=== PATIENT | male | born 1990 | race African-American/Black ===

== ENCOUNTER 2020-08-05 13:40 | Emergency (ER) | payer SELFPAY ==
--- NOTE | ~2020-08-05 | XR_ITS ---
EXAMINATION: XR KNEE, RIGHT CLINICAL INFORMATION: Pain COMPARISON: None TECHNIQUE: Four views of the right knee. FINDINGS: Bone alignment is normal. No fracture or dislocation is seen. The joint spaces are normal. There is a large joint effusion. XR/XR knee RT 4V IMPRESSION: Large joint effusion.
[2020-08-05 13:42] VITALS: BP 145/73; PULSE 50; RESP 16; TEMP 36.7; O2SAT 98; BMI 32.1
--- NOTE | 2020-08-05 16:49 | ED.EXTPRO ---
HPI - Extremity Problem General Chief complaint: Extremity Problem Stated complaint: knee pain Time Seen by Provider: 08/05/20 15:23 History of Present Illness HPI Narrative: Patient complains of pain and swelling to the right knee for several days, denies any injury, patient has had prior surgery to the knee Related Data Previous Rx's Medication Instructions Recorded ibuprofen 600 mg PO Q6H PRN #20 tab 08/05/20 Allergies Allergy/AdvReac Type Severity Reaction Status Date / Time No Known Allergies Allergy Verified 08/05/20 14:58 Review of Systems Review of Systems: Positive for right knee pain and swelling Negatives are no fever no chills no dizziness no weakness no fainting no chest pain no shortness of breath no neck pain no back pain no rash no numbness or weakness PMFSH Past Medical History Source: nursing notes reviewed Medical History (Updated 08/06/20 @ 00:01 by Pavan Herrera) Right knee meniscal tear Social History Social History Smoked in Last 30 Days: No Use of substances other than those prescribed or required for medical reasons: No Advance Directives: Yes Advance Directives Information Provided: No Advance Directives on File: No Physical Exam Vital Signs: Vital Signs: Last Vital Signs Temp 98.0 F 08/05/20 13:42 Pulse 50 08/05/20 13:42 Resp 16 08/05/20 13:42 BP 145/73 H 08/05/20 13:42 Pulse Ox 98 08/05/20 13:42 Body Mass Index 32.1 General appearance is no acute distress relax and cooperative The head is normocephalic atraumatic Neck is supple Respiratory no acute distress Extremities is the right knee has swelling and tenderness, there is no redness or warmth, it extends to 180, patient can do a straight leg raise, it flexes to around 90, neurovascular intact distal, patient is walking with a limping gait Other extremities normal Skin no rashes Neuro no focal deficits Course Course Course Narrative: X-ray showed an effusion in the knee, no other acute findings, patient is discharged to follow with Orthopedics Discharge Plan Discharge Clinical Impression: Effusion of knee joint right Patient Disposition: Home, Self-Care Additional Instructions: Follow with orthopedist for pain and swelling in the right knee X-ray showed some fluid on the knee This can sometimes happen after surgery on the right knee Prescriptions: New ibuprofen 600 mg tablet 600 mg PO Q6H PRN (Reason: pain) Qty: 20 RF: 0 Referrals: Shirley Dukes MD [Physician] - 2 days (Right knee effusion for possible drainage and steroid shot) Stand Alone Forms: Work/School Release Interventions: ED Discharge Assessment Last Done: 08/05/20 17:09 Discharge Date/Time: 08/05/20 17:11
== END 2020-08-05 17:11 | disposition home or self-care (01) ==
PROVIDERS: Emergency Provider Emergency Medicine Emergency Medical Services
DX: M25.461 Effusion, right knee (principal); M25.561 Pain in right knee
CPT/HCPCS: 73564; 99283

== ENCOUNTER 2020-08-07 23:01 | Emergency (ER) | payer SELFPAY ==
--- NOTE | 2020-08-07 23:33 | ED_ITS ---
HPI - Extremity Injury (Lower) General Chief Complaint: Extremity Injury, Lower Stated Complaint: KNEE PAIN Time Seen by Provider: 08/07/20 23:29 Source: patient Mode of arrival: ambulatory Limitations: no limitations History of Present Illness HPI Narrative: Patient was working 2 days ago next day woke up notice si gnificant right knee pain with slight swelling. Patient had meniscal tear about 4 years ago and had arthroscopic surgery and was painless since then. No other injuries MD complaint: knee injury Related Data Previous Rx's Medication Instructions Recorded ibuprofen 600 mg PO Q6H PRN #20 tab 08/05/20 tramadol 50 mg PO Q6H PRN #20 tab 08/07/20 Allergies Allergy/AdvReac Type Severity Reaction Status Date / Time No Known Allergies Allergy Verified 08/07/20 23:40 Review of Systems Review of Systems: Yes all other systems are reviewed and are negative [facility] Past Medical History Medical History Right knee meniscal tear Social History Social History Smoking Status: Never smoker Use of substances other than those prescribed or required for medical reasons: No Advance Directives: No Physical Exam Vital Signs: Vital Signs: Last Vital Signs Temp 98.7 F 08/07/20 23:40 Pulse 76 08/07/20 23:40 Resp 16 08/07/20 23:40 BP 132/65 08/07/20 23:40 Pulse Ox 99 08/07/20 23:40 Body Mass Index 23.7 Const: General: no acute distress and well developed HENMT: Head: Yes normocephalic and Yes atraumatic Resp: Effort & Inspection: normal respiratory effort Extrem: Knee images: 1. Diffuse tenderness right knee without any in knee effusion no medial or lateral joint line tenderness jailyn's sign negative anterior drawer sign is negative good range of movement , no deformity MDM - Extremity Injury (Lower) MDM Narrative Medical decision making narrative: Patient likely with ligament strain no signs of significant meniscal injury. Patient advised to use Ephraim wrap and continue to take pain medication and follow with Orthopedics if not better in 2 weeks patient ambulatory in the ER Discharge Plan Discharge Clinical Impression: Acute internal derangement of knee Qualifiers: Laterality: right Qualified Code(s): M23.91 - Unspecified internal derangement of right knee Patient Disposition: Home, Self-Care Instructions: Knee Pain (ED) Additional Instructions: you Likely have ligament strain of your right knee. Use Ephraim wrap as advised. Pain medication as advised. Avoid going upstairs or downstairs. Follow with Orthopedic if not better in 2 weeks Prescriptions: New tramadol 50 mg tablet 50 mg PO Q6H PRN (Reason: pain) Qty: 20 RF: 0 No Action ibuprofen 600 mg tablet 600 mg PO Q6H PRN (Reason: pain) Qty: 20 RF: 0 Stand Alone Forms: Work/School Release
[2020-08-07 23:40] VITALS: BP 132/65; PULSE 76; RESP 16; TEMP 37.1; O2SAT 99; BMI 23.7
[2020-08-08] MEDS: traMADoL HCL 50 MG TABLET 100 MG PO (00:01)
== END 2020-08-08 00:20 | disposition home or self-care (01) ==
PROVIDERS: Emergency Provider Internal Medicine
DX: M23.91 Unspecified internal derangement of right knee (principal); M25.561 Pain in right knee
CPT/HCPCS: 99283

== ENCOUNTER 2020-09-13 08:26 | Outpatient (REF) | payer SELFPAY ==
--- NOTE | ~2020-09-13 | XR_ITS ---
EXAMINATION: XR KNEE, RIGHT CLINICAL INFORMATION: Pain COMPARISON: Previous x-ray July 2020 TECHNIQUE: [place] view of the right knee. FINDINGS: Patellofemoral alignment appears normal. No fracture or dislocation or bone lesion is seen. Soft tissues are unremarkable. XR/XR knee RT 2V IMPRESSION: Normal sunrise view of the right knee.
== END 2020-09-13 08:27 | disposition home or self-care (01) ==
LOC: HO.HOSX 08:26
PROVIDERS: Visit Provider Physician Assistant
DX: M25.561 Pain in right knee (principal); M23.91 Unspecified internal derangement of right knee
CPT/HCPCS: 20610; 73560; J1040

== ENCOUNTER 2020-09-18 07:28 | Emergency (ER) | payer BC, SELFPAY ==
--- NOTE | ~2020-09-18 | US_ITS ---
EXAMINATION: US VENOUS ULTRASOUND WITH DOPPLER LOWER EXTREMITY, LEFT CLINICAL INFORMATION: Pain COMPARISON: None TECHNIQUE: Ultrasound of the deep veins is performed from the hip to the calf with compression sonography and color and pulse Doppler assessment. Spectral analysis with color-flow imaging is performed. FINDINGS: There is normal venous compression and respiratory variation and augmented flow. The visualized common femoral vein, superficial femoral vein, profunda femoral vein, popliteal vein, and the trifurcation region shows no evidence of deep venous thrombosis. There is no significant popliteal fossa cyst. If the patient's symptoms persist, followup ultrasound in 5 days 7 days might be of value to exclude proximal propagation from a non-visualized calf vein. US/US venous duplex LE LT IMPRESSION: No DVT demonstrated in the left lower extremity. No abnormalities present along the left posterior thigh where the patient is experiencing pain.
[2020-09-18 07:33] VITALS: BP 147/76; PULSE 65; RESP 16; TEMP 36.9; O2SAT 98; BMI 22.3
--- NOTE | 2020-09-18 08:19 | ED.EXTPRO ---
HPI - Extremity Problem General Chief complaint: Extremity Problem Stated complaint: pulled hamstring Time Seen by Provider: 09/18/20 08:18 Source: patient Mode of arrival: ambulatory Limitations: no limitations History of Present Illness HPI Narrative: Came in for evaluation of left thigh hamstring pain. 30-year-old otherwise healthy male came in for evaluation of left hamstring muscle pain started 2 days ago, pain is localized to the back of the left thigh, describes the pain as dull ache with cramps, no radiation of the pain, pain is intermittent if it is there it is 8/10, walking or movement makes the pain worse, rest makes the pain better, no other associated symptoms. Patient declined any recent history of travel of prolonged immobilization or history of DVT. Patient also declined any history of trauma. No history of strenuous exercising. Related Data Previous Rx's Medication Instructions Recorded ibuprofen 600 mg PO Q6H PRN #20 tab 08/05/20 tramadol 50 mg PO Q6H PRN #20 tab 08/07/20 meloxicam 7.5 mg tablet 7.5 mg PO DAILY 30 Days #30 tab 09/13/20 cyclobenzaprine 10 mg PO TID #10 tab 09/18/20 ibuprofen 800 mg PO Q8H PRN #14 tab 09/18/20 Allergies Allergy/AdvReac Type Severity Reaction Status Date / Time No Known Allergies Allergy Verified 09/13/20 12:45 Review of Systems Review of Systems: All other systems are reviewed and are negative Constitutional: Reports as per HPI and Reports no additional constitutional complaints Eyes: Reports as per HPI and Reports no additional eye complaints Reports system reviewed and no additional complaints, except as documented Cardiovascular: Reports as per HPI and Reports no additional cardiovascular complaints Respiratory: Reports as per HPI and Reports no additional respiratory complaints Gastrointestinal: Reports as per HPI and Reports no additional gastrointestinal complaints Genitourinary: Reports no additional female genitourinary complaints Musculoskeletal: Reports no additional musculoskeletal complaints Skin/Breast: Reports system reviewed and no additional complaints, except as docu Psychiatric: Reports no additional psychiatric complaints Endocrine: Reports no additional endocrine complaints Hematologic/Lymphatic: Reports no additional hematologic/lymphatic complaints Allergic/Immunologic: Reports no additional allergic/immunologic complaints Reports system reviewed and no additional complaints, except as documented and Reports Abnormal speech present [facility] Past Medical History Medical History Right knee meniscal tear Social History Social History Alcohol intake: never Smoking Status: Never smoker Smoked in Last 30 Days: No Use of substances other than those prescribed or required for medical reasons: No Advance Directives: No Advance Directives Information Provided: No Current occupational status: employed Current occupation: Warehouse work Physical Exam Vital Signs: Vital Signs: Last Vital Signs Temp 98.4 F 09/18/20 07:33 Pulse 65 09/18/20 07:33 Resp 16 09/18/20 07:33 BP 147/76 H 09/18/20 07:33 Pulse Ox 98 09/18/20 07:33 Body Mass Index 22.3 Vital signs have been reviewed as appeared to be correct. Blood pressure elevated . Heart rate normal. Respiration rate normal. Temperature normal. Oxygen saturation normal. Appearance: Alert. Oriented X3. No acute distress. Head: Normal external exam. Normocephalic. Atraumatic. No Gar signs noted. No raccoon eyes noted Eyes: PERRLA. EOMI. Conjunctiva and sclera normal. Eyelids normal. ENT: TM's Normal. Pharynx normal. Uvula midline. Moist mucous membranes. No trismus noted. No drooling noted. No muffled voice noted. Neck: Normal inspection. Neck supple. FROM. No adenopathy. Thyroid Normal. No meningeal signs. No neck mass noted. CVS: Normal heart rate and rhythm. Heart sound normal. No murmurs noted. Pulses normal throughout. Respiratory: No respiratory distress. Painless inspiration. Breath sounds normal. No wheezes/rales/rhonchi noted. Chest nontender. No accessory muscle usage noted or decreased air movement noted. Abdomen: Soft and nontender. Bowel sounds normal in all 4 quadrants. No distention noted. No organomegaly noted. No visible injury noted. Back: No CVA tenderness. Full range of motion noted. Skin: Skin warm and dry. Normal skin color. Normal skin turgor. No rashes/lesions/lacerations noted. Extremities: No lower extremity edema. Extremities exhibit normal range of motion. Extremities nontender. Neuro: Oriented X 3. No motor deficit. No sensory deficit. Reflexes normal. Course Course Course Narrative: Left hamstring muscle pain. Unremarkable labs, ultrasound demonstrate no DVT. Physical exam/ultrasound are consistent with pulled muscle. Will recommend rest/heating pad/muscle relaxant/NSAIDs. MDM - Extremity (Nontraumatic) Lab Data Attestation: I reviewed the patient's lab results. Result diagrams: 09/18/20 08:43 09/18/20 08:43 Labs: Lab Results 09/18/20 09/18/20 Range/Units 08:43 08:43 WBC 7.7 (4.8-10.8) X10*3/uL RBC 4.71 (4.60-5.80) X10*6/uL Hgb 13.5 L (14.0-18.0) g/dl Hct 41.3 L (42-52) % MCV 87.7 (80-98) fL MCH 28.7 (27.0-33.0) pg MCHC 32.7 (31.0-36.0) g/dl RDW 13.2 (11.0-16.0) % Plt Count 270 (160-400) X10*3/uL MPV 9.5 (9.4-12.4) fL Immature Gran % (Auto) 0.5 H (0.0-0.4) % Neut % (Auto) 73.1 H (45-73) % Lymph % (Auto) 19.0 L (20-40) % [place] % (Auto) 6.2 (2-11) % Eos % (Auto) 0.9 (0-4) % Baso % (Auto) 0.3 (0-2) % Lymph # (Auto) 1.5 (1.2-4.9) X10*3/uL [place] # (Auto) 0.5 (0.1-1.2) X10*3/uL Eos # (Auto) 0.1 (0.0-0.4) X10*3/uL Baso # (Auto) 0.0 (0.0-0.2) X10*3/uL Abs Immat Gran (auto) 0.04 H (0.00-0.03) X10*3/uL Absolute Neuts (auto) 5.7 (2.0-8.3) X10*3/uL Absolute Nucleated RBC 0.000 (0.0-0.012) X10*3/uL Nucleated RBC % (auto) 0.0 (0.0-0.2) /100WBC Sodium 141 (135-145) mmol/L Potassium 4.2 (3.3-5.1) mmol/L Chloride 107 (96-108) mmol/L Carbon Dioxide 28 (22-29) mmol/L Anion Gap 10 L (12-20) BUN 13 (9-16) mg/dL Creatinine 1.00 (0.5-1.4) mg/dL Estim Creat Clear Calc 109.8 Estimated GFR > 60 Random Glucose 101 (60-115) mg/dL Calcium 9.2 (8.4-10.2) mg/dL Total Creatine Kinase 135 (38-174) U/L Imaging Data Left lower extremities ultrasound: Radiologist's impression: No DVT demonstrated in the left lower extremity. No abnormalities present along the left posterior thigh where the patient is experiencing pain. Discharge Plan Discharge Clinical Impression: Hamstring muscle strain Qualifiers: Encounter type: initial encounter Laterality: left Qualified Code(s): S76.312A - Strain of muscle, fascia and tendon of the posterior muscle group at thigh level, left thigh, initial encounter Patient Disposition: Home, Self-Care Prescriptions: New cyclobenzaprine 10 mg tablet 10 mg PO TID Qty: 10 RF: 0 ibuprofen 800 mg tablet 800 mg PO Q8H PRN (Reason: pain) Qty: 14 RF: 0 No Action ibuprofen 600 mg tablet 600 mg PO Q6H PRN (Reason: pain) Qty: 20 RF: 0 tramadol 50 mg tablet 50 mg PO Q6H PRN (Reason: pain) Qty: 20 RF: 0 meloxicam 7.5 mg tablet 7.5 mg PO DAILY 30 Days Qty: 30 RF: 0 Referrals: Physician,None [Primary Care Provider] - 2 days Stand Alone Forms: Work/School Release
[2020-09-18 08:48] LABS: MANUAL DIFF FLAG NO
[2020-09-18 08:50] LABS: Basophils Percent Auto 0.3 % (0-2); Eosinophils Absolute Auto 0.1 X10*3/uL (0.0-0.4); Eosinophils Percent Auto 0.9 % (0-4); Hematocrit 41.3 % (42-52); Hemoglobin 13.5 g/dl (14.0-18.0); Imm Gran Abs Auto 0.04 X10*3/uL (0.00-0.03); Imm Gran Pct Auto 0.5 % (0.0-0.4); Lymphocytes Absolute Auto 1.5 X10*3/uL (1.2-4.9); Mean Corpuscular HGB Conc 32.7 g/dl (31.0-36.0); Mean Corpuscular Hemoglobin 28.7 pg (27.0-33.0); Mean Corpuscular Volume 87.7 fL (80-98); Mean Platelet Volume 9.5 fL (9.4-12.4); Monocytes Absolute Auto 0.5 X10*3/uL (0.1-1.2); Monocytes Percent Auto 6.2 % (2-11); Neutrophils Absolute Auto 5.7 X10*3/uL (2.0-8.3); Neutrophils Percent Auto 73.1 % (45-73); Platelet Count 270 X10*3/uL (160-400); Red Blood Count 4.71 X10*6/uL (4.60-5.80); Red Cell Distribution Width 13.2 % (11.0-16.0); White Blood Count 7.7 X10*3/uL (4.8-10.8)
[2020-09-18 09:11] LABS: Anion Gap 10 (12-20); Blood Urea Nitrogen 13 mg/dL (9-16); Calcium 9.2 mg/dL (8.4-10.2); Carbon Dioxide 28 mmol/L (22-29); Chloride 107 mmol/L (96-108); Creatinine Clr Calc Pharmacy 109.8; Estimated Glomerular Filt Rate > 60; Glucose Random 101 mg/dL (60-115); Potassium 4.2 mmol/L (3.3-5.1); Sodium 141 mmol/L (135-145)
== END 2020-09-18 09:36 | disposition home or self-care (01) ==
PROVIDERS: Emergency Provider Emergency Medicine
DX: S76.312A Strain of muscle, fascia and tendon of the posterior muscle group at thigh level, left thigh, initial encounter (principal); X58.XXXA Exposure to other specified factors, initial encounter; M79.652 Pain in left thigh; Y93.9 Activity, unspecified; Y92.9 Unspecified place or not applicable; Y99.9 Unspecified external cause status
CPT/HCPCS: 36415; 80048; 82550; 85025; 93971; 99283

== ENCOUNTER → 2020-10-06 12:49 | Outpatient (BNVA) | payer BC, SELFPAY | PROVIDERS: Visit Provider Physician Assistant ==

== ENCOUNTER 2020-10-18 07:23 | Outpatient (REF) | payer BC, SELFPAY ==
--- NOTE | ~2020-10-18 | MR_ITS ---
EXAMINATION: MR KNEE WITHOUT CONTRAST, RIGHT CLINICAL INFORMATION: Right knee pain, swelling, decreased range of motion. COMPARISON: Most recent right knee radiographs dated 09/13/2020 and right knee MRI dated 10/29/2016. TECHNIQUE: MRI of the knee without contrast was performed using routine sequences on a high-field scanner. FINDINGS: MENISCI: Medial Meniscus: Mild fraying of the posterior root inner margin, new when compared to the prior examination. Lateral Meniscus: Complex tearing of the medial meniscus with attenuation of the meniscal body and posterior horn. There is a meniscal flap displaced superior to the posterior root measuring up to 1.4 cm in ML dimension. The nondisplaced portion of the meniscal body and posterior horn is irregular with oblique inner margin tearing. LIGAMENTS: Cruciate: Intact. Collateral: Intact. EXTENSOR MECHANISM: Intact. ARTICULAR CARTILAGE/BONE: Patellofemoral Compartment: Medial patellar facet articular cartilage fissuring. Tiny marginal osteophytes. Findings are unchanged. Medial Compartment: Intact articular cartilage. Lateral Compartment: Full-thickness posterior weightbearing lateral femoral condyle articular cartilage defect measuring 1.9 x 1.4 cm (AP by ML) with underlying subchondral cystic change and marrow edema, new when compared to the prior examination. Weightbearing lateral femoral condyle articular cartilage signal heterogeneity. Marginal osteophytes. Degenerative changes have increased when compared to the prior examination. JOINT FLUID AND BURSAE: Small joint effusion with mild synovitis. Small Dewey's cyst. Loose body posterior to the central tibial plateau measuring up to 0.8 cm (sagittal image ). Loose bodies within the Dewey's cyst measuring up to 0.6 cm. MR/MR knee RT wo con IMPRESSION: 1. Complex tearing of the lateral meniscus with attenuation of the nondisplaced body and posterior horn. Meniscal flap displaced superior to the posterior root. 2. Mild inner margin fraying of the medial meniscus posterior root, new when compared to the prior examination. 3. Full-thickness articular cartilage defect at the posterior weightbearing lateral femoral condyle measuring up to 1.9 cm with underlying subchondral cystic change/marrow edema. Findings are new when compared to the prior examination. Overall [id number] lateral compartment osteoarthritis, slightly progressed. Mild patellofemoral compartment osteoarthritis, unchanged. 4. Small joint effusion with mild synovitis. Small Dewey's cyst. Multiple loose bodies measuring up to 0.8 cm.
== END 2020-10-18 07:24 | disposition home or self-care (01) ==
LOC: HO.MRI 07:23
PROVIDERS: Visit Provider Physician Assistant
DX: S89.91XA Unspecified injury of right lower leg, initial encounter (principal); M25.561 Pain in right knee; M23.91 Unspecified internal derangement of right knee
CPT/HCPCS: 73721

== ENCOUNTER → 2020-10-21 09:21 | Outpatient (BNVA) | payer BC, SELFPAY | PROVIDERS: Visit Provider Physician Assistant ==

== ENCOUNTER 2020-11-09 10:50 | Day surgery (SDC) | payer BC, SELFPAY ==
[2020-11-03 10:47] VITALS: BMI 22.3
--- NOTE | 2020-11-08 08:21 | P.CONAN_ITS ---
Documented by User: Linda Ngo 11/08/20 08:22 HPI - Anesthesia Eval Consult details Narrative: 30yo M for Right Knee Arthroscopy,lateral partial menisectomy vs repair PMFSH Active Problems Active Problems: All Active Problems (Updated 11/03/20 @ 10:50 by Nidia Mondragon) Knee pain (Acute) Internal derangement of left knee (Acute) Pain of meniscus of left knee (Acute) Pain of meniscus of right knee (Acute) Internal derangement of right knee (Acute) Acute injury of anterior cruciate ligament of right knee (Acute) Acute lateral meniscus tear of right knee (Acute) Past Medical History Medical History COVID-19 vaccine administered Right knee meniscal tear Surgical History Surgical History Hx of arthroscopic knee surgery Hx of elbow surgery Social History Social History Are you a primary pediatric care coordinator to a significant other at home: No Do you presently have visiting nurse or other home services: No Alcohol intake: never Patient Tobacco Use Status: Never used Tobacco Use of substances other than those prescribed or required for medical reasons: No Have you been hit, kicked, punched, or otherwise hurt by someone within the past year? If so, by whom?: No Are you DNR?: No Advance Directives: No Advance Directives Information Provided: No Advance Directives on File: No Recently lost weight without trying: No Eating poorly because of decreased appetite: No Nutrition Risks: No Nutritional Risk Poor oral hygiene: No Current occupational status: employed Current occupation: [employer] work Meds Allergies Allergy/AdvReac Type Severity Reaction Status Date / Time No Known Allergies Allergy Verified 10/06/20 13:00 Home Medications Medication Instructions Recorded Confirmed Last Taken Type No Known Home Meds 11/03/20 11/03/20 Unknown History Exam Exam Date and Time: November 08, 2020820 Height,Weight and Vital Signs: Height 5 ft 11 in Weight 72.575 kg Pertinent Lab Results Pertinent Lab Results: Laboratory Tests 09/18/20 09/18/20 08:43 08:43 WBC 7.7 Hgb 13.5 L Hct 41.3 L Plt Count 270 Sodium 141 Potassium 4.2 Chloride 107 Carbon Dioxide 28 BUN 13 Creatinine 1.00 Assessment and Plan Assessment Anesthesia Assessment: Chart Reviewed Documented by User: Rose Mary Jones 11/09/20 11:46 PMFSH Past Medical History Medical History COVID-19 vaccine administered Right knee meniscal tear Family History Family history of problems with anesthesia: No Surgical History Surgical History Hx of arthroscopic knee surgery Hx of elbow surgery History of Problems with Anesthesia: No Social History Social History Are you a primary pediatric care coordinator to a significant other at home: No Do you presently have visiting nurse or other home services: No Alcohol intake: never Patient Tobacco Use Status: Never used Tobacco Use of substances other than those prescribed or required for medical reasons: No Have you been hit, kicked, punched, or otherwise hurt by someone within the past year? If so, by whom?: No Are you DNR?: No Advance Directives: No Advance Directives Information Provided: No Advance Directives on File: No Recently lost weight without trying: No Eating poorly because of decreased appetite: No Nutrition Risks: No Nutritional Risk Poor oral hygiene: No Current occupational status: employed Current occupation: [employer] work Meds Allergies Allergy/AdvReac Type Severity Reaction Status Date / Time No Known Allergies Allergy Verified 10/06/20 13:00 Home Medications Medication Instructions Recorded Confirmed Last Taken Type No Known Home Meds 11/03/20 11/03/20 Unknown History Exam Height,Weight and Vital Signs: Vital Signs Temp Pulse Resp BP Pulse Ox 11/09/20 11:05 97.7 F 64 16 121/83 98 Airway Mallampati Class: II TM Dist: >3cm Neck ROM: Full Loose/Missing/Broken Teeth: No Heart: RRR Lungs: CTAB Assessment and Plan Assessment Anesthesia Assessment: Anesthesia Plan Discussed and Chart Reviewed Final Anesthetic Review NPO: Yes ASA Class: I Final Preanesthetic Review: No Changes in Pt Med Stat, Meds/Allgs Chart Reviewed, Consent Obtained/Reviewed and Anes Risks/Benef Reviewed Patient Risk: Low Procedure Risk: Low Assessment/Block/Sedation in SS: Assess/Block/Sedation-SS Anesthetic Plan Anesthetic Plan: GA Disposition: Standard PACU
[2020-11-09] VITALS (11 sets, daily range): BP systolic 121–146; BP diastolic 74–107; PULSE 50–68; RESP 14–20; TEMP 36.2–36.5; O2SAT 98–99
[2020-11-09] MEDS: Lactated Ringers 1,000 ML 100 ML IVCONT (11:30)
--- NOTE | 2020-11-09 13:30 | MHC.SHP ---
Pre-Procedural Eval Section A The patient is an INPATIENT: No Changes since office visit: Yes Patient answered all questions; No Cold of Flu in the past 2 weeks, No New Medical Problems and No Changes in Medication The History & Physical has been completed within 30 days and I have reviewed it.: Yes Section B Chief Complaint: meniscus tear Allergies: Allergies Allergy/AdvReac Type Severity Reaction Status Date / Time No Known Allergies Allergy Verified 10/06/20 13:00 Plan I have reviewed the history and physical and performed a pertinent physical examination on my patient. No changes have occurred unless specified.
--- NOTE | 2020-11-09 15:27 | PM.OP ---
Brief Operative Note Date of Service: 11/09/20 Pre-op diagnosis: right knee lateral meniscus tear Post-op diagnosis: other (1) same 2) lateral compartmetn OA) Procedure: partial lateral meniscectomy chondroplasty Surgeon: Tirso Espinoza MD Anesthesia: GETA and local Was an [facility]is Specialist used for this Procedure?: Yes Hedis Specialist: Tabatha Romero Estimated blood loss (mL): 5 Tourniquet time (min): 40 Pathology: none sent Condition: stable Disposition: PACU
[2020-11-09] MEDS: Acetaminophen 325 MG TABLET 650 MG PO (16:10)
[2020-11-09] MEDS: oxyCODONE HCl Immed Release 5 MG TABLET PO (16:10)
[2020-11-09] MEDS: Ketorolac Tromethamine 15 MG/ML VIAL IVPUSH (16:14)
[2020-11-09] MEDS: fentaNYL citrate/PF 100 MCG/2 ML VIAL 25 MCG IVPUSH ×2 (16:15→16:30)
--- NOTE | 2020-11-10 17:04 | P.OP_ITS ---
Operative Note Operative Note Date of Service: 11/09/20 Narrative: Pre-op diagnosis: right knee lateral meniscus tear Post-op diagnosis: other (1) same 2) lateral compartmetn OA) Procedure: partial lateral meniscectomy chondroplasty Surgeon: Tirso Espinoza MD Anesthesia: GETA and local Was an Senior Storage Administrator used for this Procedure?: Yes Senior Storage Administrator: Tabatha Romero Estimated blood loss (mL): 5 Tourniquet time (min): 40 Pathology: none sent Condition: stable Disposition: PACU Procedure in detail: Patient was brought to the operating room placed supine on the operative table and prepped and draped in standard sterile fashion. A time-out was called to identify proper site proper procedure proper surgeon IV antibiotics per weight were administered. I began by exsanguinating the limb and insufflating tourniquet to 300 mm Hg. I then made a standard anterolateral stab incision with a 15 blade and placed my blunt trocar atraumatically into the patellofemoral joint. There was some grade 1 wear of the patella but overall the patellofemoral chondral surfaces were intact. There were chondral bits in both the medial and lateral gutters as well as the suprapatellar pouch. I descended into the medial compartment where I made a medial portal under direct visualization. The medial compartment was examined and the meniscus and cartilage surfaces were pristine. I descended into the notch where the ACL was examined and intact and then entered the lateral compartment. There was a displaced tear into the notch of the posterolateral meniscus with the root intact. There was a full-thickness or 1 cm x 5 mm chondral defect in the weight-bearing portion of the post row medial aspect of the lateral plateau. This was debrided down to stable edges using a shaver and cautery. I then examined the femoral condyle which had a large full-thickness 1.5 x 1 cm lesion in the lateral aspect portion of the lateral femoral condyle. This area was mostly nonweightbearing except in extension. There was fragmentation of the cartilage and this was removed with the shaver and cautery. I then removed all remaining loose bodies within the knee and examined the lateral meniscus. Again the root was intact. I then removed all instrumentation. Portals were closed with nylon. I injected 25 mL of 0.25% Marcaine with epinephrine into the soft tissues and the joint. Patient was then extubated brought to recovery room stable condition there were no known complications.
== END 2020-11-09 17:50 | disposition home or self-care (01) ==
PROVIDERS: Visit Provider Orthopaedic Surgery
PROC: (CPT 29870; principal; 2020-11-09 12:30)
DX: S83.281A Other tear of lateral meniscus, current injury, right knee, initial encounter (principal); X58.XXXA Exposure to other specified factors, initial encounter; Y93.9 Activity, unspecified; Y92.9 Unspecified place or not applicable; Y99.8 Other external cause status; M17.11 Unilateral primary osteoarthritis, right knee
CPT/HCPCS: 29881; J0171; J0690; J1100; J1885; J2250; J2405; J3010

== ENCOUNTER → 2020-11-23 12:44 | Outpatient (BNVA) | payer BC, SELFPAY | PROVIDERS: Visit Provider Physician Assistant ==

== ENCOUNTER → 2020-12-19 12:29 | Outpatient (BNVA) | payer BC, SELFPAY | PROVIDERS: Visit Provider Orthopaedic Surgery ==

== ENCOUNTER 2021-01-18 09:04 | Outpatient (RCR) | payer BC, SELFPAY | END 2021-05-25 09:40 | disposition home or self-care (01) | LOC: HO.PT 09:04 | PROVIDERS: Visit Provider Physician Assistant | DX: M25.561 Pain in right knee (principal) ==

== ENCOUNTER 2021-08-28 01:33 | Emergency (ER) | payer OTHER, SELFPAY ==
--- NOTE | ~2021-08-28 | CT_ITS ---
EXAMINATION: CT ABDOMEN AND PELVIS WITHOUT CONTRAST CLINICAL INFORMATION: Left flank pain COMPARISON: None TECHNIQUE: Multidetector volumetric imaging was performed from the superior aspect of the liver through the pubic symphysis. Sagittal and coronal reformatted images were obtained on the technologist's workstation. This CT examination was performed using dose optimization techniques as appropriate, variously including the following: *Automated exposure control *Adjustment of mA and/or kV according to patient size (this includes techniques or standardized protocols for targeted exams where dose is matched to indication/reason for exam; i.e. extremities or head) *Use of iterative reconstruction technique DLP: 412 mGy-cm FINDINGS: LUNG BASES: The visualized lung bases are unremarkable. LIVER, GALLBLADDER, AND BILIARY TREE: The liver is normal in size, shape, and attenuation. No focal hepatic lesion or biliary ductal dilatation is identified on this noncontrast exam. The gallbladder is unremarkable with no evidence of radiopaque gallstones, gallbladder wall thickening, or obvious pericholecystic inflammatory changes. PANCREAS: Unremarkable. SPLEEN: Unremarkable. ADRENAL GLANDS: Unremarkable. KIDNEYS AND URETERS: The kidneys are normal in size, shape, and attenuation. No hydronephrosis, hydroureter, or calculi seen. No perinephric stranding. BLADDER: Unremarkable. GASTROINTESTINAL TRACT: No evidence of bowel obstruction. No significant bowel wall thickening is seen, though assessment of some segments is limited due to luminal collapse. Appendix is suspected to be nondilated. No free fluid or free air is seen. ABDOMINAL WALL: No significant hernia is appreciated. LYMPH NODES: No lymphadenopathy is seen, though assessment is limited in the absence of intravenous contrast. VASCULAR: Unremarkable. PELVIC VISCERA: Unremarkable. OSSEOUS STRUCTURES: Degenerative change is noted at the pubic symphysis. CT/CT abdomen pelvis wo con IMPRESSION: No acute findings identified in the abdomen/pelvis. No hydronephrosis or obstructing calculus. Fleischner guidelines were followed.
[2021-08-28 01:59] VITALS: BP 151/110; PULSE 66; RESP 18; TEMP 37; O2SAT 99; BMI 23.0
[2021-08-28 02:03] LABS: MANUAL DIFF FLAG NO
[2021-08-28 02:06] LABS: Basophils Percent Auto 0.3 % (0-2); Eosinophils Absolute Auto 0.1 X10*3/uL (0.0-0.4); Eosinophils Percent Auto 0.8 % (0-4); Hematocrit 42.8 % (42.0-52.0); Hemoglobin 14.4 g/dl (14.0-18.0); Imm Gran Abs Auto 0.04 X10*3/uL (0.00-0.03); Imm Gran Pct Auto 0.3 % (0.0-0.4); Lymphocytes Absolute Auto 2.7 X10*3/uL (1.2-4.9); Lymphocytes Percent Auto 23.3 % (20-40); Mean Corpuscular HGB Conc 33.6 g/dl (31.0-36.0); Mean Corpuscular Hemoglobin 28.9 pg (27.0-33.0); Mean Corpuscular Volume 85.8 fL (80.0-98.0); Mean Platelet Volume 9.2 fL (9.4-12.4); Monocytes Absolute Auto 0.9 X10*3/uL (0.1-1.2); Monocytes Percent Auto 7.6 % (2-11); Neutrophils Absolute Auto 7.9 x10*3/uL (2.0-8.3); Neutrophils Percent Auto 67.7 % (45-73); Platelet Count 308 X10*3/uL (160-400); Red Blood Count 4.99 X10*6/uL (4.60-5.80); Red Cell Distribution Width 12.9 % (11.0-16.0); White Blood Count 11.6 X10*3/uL (4.8-10.8)
[2021-08-28 02:23] LABS: Alanine Aminotransferase 17 U/L (0-40); Albumin Level 4.3 g/dL (3.5-5.0); Alkaline Phosphatase 56 U/L (39-117); Anion Gap 13 (12-20); Aspartate Amino Transferase 22 U/L (5-37); Bilirubin Total 2.2 mg/dL (0.0-1.0); Blood Urea Nitrogen 11 mg/dL (9-16); Calcium 9.6 mg/dL (8.4-10.2); Carbon Dioxide 28 mmol/L (22-29); Chloride 99 mmol/L (96-108); Creatinine Clr Calc Pharmacy 87.6; Estimated Glomerular Filt Rate > 60; Glucose Random 98 mg/dL (60-115); Potassium 3.5 mmol/L (3.3-5.1); Sodium 136 mmol/L (135-145)
[2021-08-28 02:26] LABS: Appearance Urine CLEAR; Color Urine YELLOW; Glucose Urine UA NEG (NEG); Leukocyte Esterase Urine NEG (NEG); Nitrite Urine NEG (NEG); Specific Gravity - Urine 1.025 (1.005-1.025); Urine Blood NEG (NEG); Urine Ketones 5 MG/DL (NEG); Urine Protein NEG (NEG-TRACE)
--- NOTE | 2021-08-28 02:31 | ED_ITS ---
HPI - Abdominal Pain General Chief Complaint: Abdominal Pain Stated Complaint: kidney pain Time Seen by Provider: 08/28/21 02:28 Source: patient Mode of arrival: ambulatory Limitations: no limitations History of Present Illness HPI narrative: 31-year-old male came in for evaluation of left flank pain. Left flank pain started about 7 hours before was seen in the emergency department, describe it as sharp knife stabbing pain to the left flank area going down to the left groin area, reported dark urine but no blood, no fever or chills. Pain is described as intermittent colicky in nature severe 02/26. Related Data Previous Rx's Medication Instructions Recorded acetaminophen 300 mg-codeine 30 mg 1 tab PO Q6H PRN 7 Days #28 tab 11/09/20 tablet crutches #1 ea 11/09/20 Allergies Allergy/AdvReac Type Severity Reaction Status Date / Time No Known Allergies Allergy Verified 12/19/20 12:36 Review of Systems Review of Systems All other systems are reviewed and are negative Constitutional: Reports as per HPI and Reports no additional constitutional complaints Eyes: Reports as per HPI and Reports no additional eye complaints Reports system reviewed and no additional complaints, except as documented Cardiovascular: Reports as per HPI and Reports no additional cardiovascular complaints Respiratory: Reports as per HPI and Reports no additional respiratory complaints Gastrointestinal: Reports as per HPI and Reports no additional gastrointestinal complaints Genitourinary: Reports no additional female genitourinary complaints Musculoskeletal: Reports no additional musculoskeletal complaints Skin/Breast: Reports system reviewed and no additional complaints, except as docu Psychiatric: Reports no additional psychiatric complaints Endocrine: Reports no additional endocrine complaints Hematologic/Lymphatic: Reports no additional hematologic/lymphatic complaints Allergic/Immunologic: Reports no additional allergic/immunologic complaints Reports system reviewed and no additional complaints, except as documented and Reports Abnormal speech present [facility] Past Medical History Medical History COVID-19 vaccine administered Right knee meniscal tear Surgical History Hx of arthroscopic knee surgery Hx of elbow surgery Social History Social History Are you a primary career discovery teacher to a significant other at home: No Do you presently have visiting nurse or other home services: No Alcohol intake: never Patient Tobacco Use Status: Never used Tobacco Advance Directives: No Advance Directives Information Provided: No Current occupational status: employed Current occupation: rt handed/[employer] work Physical Exam ED Vital Signs: Vital Signs - 24 hr 08/28/21 01:59 Temperature 98.6 F Pulse Rate 66 Respiratory Rate 18 Blood Pressure 151/110 H Pulse Oximetry 99 BMI result Body Mass Index 23.0 Vital signs have been reviewed as appeared to be correct. Blood pressure normal. Heart rate normal. Respiration rate normal. Temperature normal. Oxy gen saturation normal. Appearance: Alert. Oriented X3. No acute distress. Head: Normal external exam. Normocephalic. Atraumatic. No Gar signs noted. No raccoon eyes noted Eyes: PERRLA. EOMI. Conjunctiva and sclera normal. Eyelids normal. ENT: TM's Normal. Pharynx normal. Uvula midline. Moist mucous membranes. No trismus noted. No drooling noted. No muffled voice noted. Neck: Normal inspection. Neck supple. FROM. No adenopathy. Thyroid Normal. No meningeal signs. No neck mass noted. CVS: Normal heart rate and rhythm. Heart sound normal. No murmurs noted. Pulses normal throughout. Respiratory: No respiratory distress. Painless inspiration. Breath sounds no rmal. No wheezes/rales/rhonchi noted. Chest nontender. No accessory muscle usage noted or decreased air movement noted. Abdomen: Soft and nontender. Bowel sounds normal in all 4 quadrants. No disten tion noted. No organomegaly noted. No visible injury noted. Back: Left CVA tenderness. Full range of motion noted. Skin: Skin warm and dry. Normal skin color. Normal skin turgor. No rashes/lesi ons/lacerations noted. Extremities: No lower extremity edema. Extremities exhibit normal range of motion. Extremities nontender. Neuro: Oriented X 3. Cranial nerve exam: II-XII are grossly intact No motor deficit. No sensory deficit. Reflexes normal. Course Course Course Narrative: Assessment and plan. 31-year-old male otherwise healthy came in with left flank pain, exam revealed left flank tenderness, CT of the abdomen and pelvis showed no stones or no acute intra abdominal pathology to explain patient's symptoms, labs are unremarkable, normal UA. Patient's symptoms thought to be secondary to a pulled muscle. Undiagnosed hypertension patient was instructed to follow-up with his PCP for further evaluation of high blood pressure. MDM - Abdominal Pain Lab Data Attestation: I reviewed the patient's lab results. Result diagrams: 08/28/21 01:55 08/28/21 01:55 Labs: Lab Results 08/28/21 08/28/21 08/28/21 Range/Units 01:55 01:55 02:22 WBC 11.6 H (4.8-10.8) X10*3/uL RBC 4.99 (4.60-5.80) X10*6/uL Hgb 14.4 (14.0-18.0) g/dl Hct 42.8 (42.0-52.0) % MCV 85.8 (80.0-98.0) fL MCH 28.9 (27.0-33.0) pg MCHC 33.6 (31.0-36.0) g/dl RDW 12.9 (11.0-16.0) % Plt Count 308 (160-400) X10*3/uL MPV 9.2 L (9.4-12.4) fL Immature Gran % (Auto) 0.3 (0.0-0.4) % Neut % (Auto) 67.7 (45-73) % Lymph % (Auto) 23.3 (20-40) % [place] % (Auto) 7.6 (2-11) % Eos % (Auto) 0.8 (0-4) % Baso % (Auto) 0.3 (0-2) % Lymph # (Auto) 2.7 (1.2-4.9) X10*3/uL [place] # (Auto) 0.9 (0.1-1.2) X10*3/uL Eos # (Auto) 0.1 (0.0-0.4) X10*3/uL Baso # (Auto) 0.0 (0.0-0.2) X10*3/uL Abs Immat Gran (auto) 0.04 H (0.00-0.03) X10*3/uL Absolute Neuts (auto) 7.9 (2.0-8.3) x10*3/uL Absolute Nucleated RBC 0.000 (0.0-0.012) X10*3/uL Nucleated RBC % (auto) 0.0 (0.0-0.2) /100WBC Sodium 136 (135-145) mmol/L Potassium 3.5 (3.3-5.1) mmol/L Chloride 99 (96-108) mmol/L Carbon Dioxide 28 (22-29) mmol/L Anion Gap 13 (12-20) BUN 11 (9-16) mg/dL Creatinine 1.32 (0.5-1.4) mg/dL Estim Creat Clear Calc 87.6 Estimated GFR > 60 Random Glucose 98 (60-115) mg/dL Calcium 9.6 (8.4-10.2) mg/dL Total Bilirubin 2.2 H (0.0-1.0) mg/dL AST 22 (5-37) U/L ALT 17 (0-40) U/L Alkaline Phosphatase 56 (39-117) U/L Total Protein 7.0 (6.5-8.0) g/dL Albumin 4.3 (3.5-5.0) g/dL Urine Color YELLOW Urine Appearance CLEAR Urine pH 6.0 (5.0-8.0) Ur Specific [place] 1.025 (1.005-1.025) Urine Protein NEG (NEG-TRACE) MG/DL Urine Glucose (UA) NEG (NEG) MG/DL Urine Ketones 5 (NEG) MG/DL Urine Blood NEG (NEG) Urine Nitrite NEG (NEG) Ur Leukocyte Esterase NEG (NEG) Urine RBC 0-2 (0) /HPF Urine WBC 0-2 (0-4) /HPF Ur Squamous Epith Cells TRACE /LPF Urine Bacteria TRACE /LPF Imaging Data CT scan - abdomen: Attestation: I personally reviewed and interpreted this imaging study as follows: Radiologist's impression: No acute findings identified in the abdomen/pelvis. No hydronephrosis or obstructing calculus. Discharge Plan Discharge Clinical Impression: Left flank pain, Hypertension Patient Disposition: Home, Self-Care Instructions: Hypertension (ED), Flank Pain (ED) Prescriptions: No Action acetaminophen-codeine 300-30 mg tablet 1 tab PO Q6H PRN (Reason: pain (scale score 4-6)) 7 Days Qty: 28 0RF (DME) crutches Kit See Rx Instructions .ROUTE .MEDSUPPLY Qty: 1 0RF Rx Instructions: As directed Referrals: Physician,None [Primary Care Provider] -
[2021-08-28 02:34] LABS: Bacteria Urine TRACE /LPF; RBC Urine 0-2 /HPF (0); Squamous Epithelial Cell Urine TRACE /LPF; WBC Urine 0-2 /HPF (0-4)
[2021-08-28] MEDS: Morphine Sulfate 2 MG/ML CARTRIDGE 1 MG IVPUSH (02:55)
[2021-08-28] MEDS: Ketorolac Tromethamine 15 MG/ML VIAL IVPUSH (02:56)
[2021-08-28] MEDS: 0.9 % Sodium Chloride 1,000 ML 999 ML IV (02:57)
[2021-08-28 04:24] VITALS: BP 141/89; PULSE 86; RESP 14; O2SAT 98
== END 2021-08-28 04:27 | disposition home or self-care (01) ==
PROVIDERS: Emergency Provider Emergency Medicine
DX: R10.9 Unspecified abdominal pain (principal); I10 Essential (primary) hypertension
CPT/HCPCS: 36415; 74176; 80053; 81001; 85025; 96361; 96374; 96375; 99284; 99285; J1885; J2270

== ENCOUNTER 2022-01-05 09:16 | Outpatient (REF) | payer SELFPAY ==
--- NOTE | ~2022-01-05 | XR_ITS ---
EXAMINATION: XR [id number] XR [id number] VIEWS CLINICAL INFORMATION: Pain in unspecified knee. COMPARISON: Right knee done on 08/05/2020. TECHNIQUE: Upright frontal views of both knees and lateral and patellar views of the right knee were obtained. FINDINGS: Upright frontal view of the left knee: The bony alignment is intact. The cortices are intact. Articular margins, joint space appear unremarkable. Right knee: The bony alignments are intact. Decreased joint space, subchondral sclerosis, mild osteophyte formation, consistent with mild tricompartmental osteoarthrosis is noted, similar to prior study dated 08/05/2020. Small suprapatellar effusion and nonspecific infrapatellar soft tissue swelling. XR/XR knee standing BI IMPRESSION: 1. The upright frontal view of the left knee appears unremarkable. 2. Mild tricompartmental osteoarthrosis of the right knee, similar to prior study dated 08/05/2020. 3. Small suprapatellar effusion, appears similar to prior study. 4. Interval development of nonspecific infrapatellar soft tissue swelling.
--- NOTE | ~2022-01-05 | XR_ITS ---
EXAMINATION: XR [id number] XR [id number] VIEWS CLINICAL INFORMATION: Pain in unspecified knee. COMPARISON: Right knee done on 08/05/2020. TECHNIQUE: Upright frontal views of both knees and lateral and patellar views of the right knee were obtained. FINDINGS: Upright frontal view of the left knee: The bony alignment is intact. The cortices are intact. Articular margins, joint space appear unremarkable. Right knee: The bony alignments are intact. Decreased joint space, subchondral sclerosis, mild osteophyte formation, consistent with mild tricompartmental osteoarthrosis is noted, similar to prior study dated 08/05/2020. Small suprapatellar effusion and nonspecific infrapatellar soft tissue swelling. XR/XR knee RT 2V IMPRESSION: 1. The upright frontal view of the left knee appears unremarkable. 2. Mild tricompartmental osteoarthrosis of the right knee, similar to prior study dated 08/05/2020. 3. Small suprapatellar effusion, appears similar to prior study. 4. Interval development of nonspecific infrapatellar soft tissue swelling.
== END 2022-01-05 09:17 | disposition home or self-care (01) ==
LOC: HO.HOSX 09:16
PROVIDERS: Visit Provider Orthopaedic Surgery
DX: Z98.890 Other specified postprocedural states (principal)
CPT/HCPCS: 73560; 73565; 99212